=== PATIENT | female | born 1950 | race African-American/Black ===

== ENCOUNTER 2022-09-15 21:39 | Inpatient (IN) | payer MEDICARE, MEDICAID ==
[~2022-09-15] VITALS: Ht 167.6 cm; Wt 82.1 kg
[~2022-09-15 21:39] MED LIST: ATOR20TA PO; DILT300T10 PO; LEVO88TA7 PO; PANT40TA51 PO; RISP1 PO; TEMA30CA PO
[2022-09-16 00:48] LABS: BASOPHILS % 0.5 % (0.0-2.0); EOSINOPHILS % 1.2 % (0.0-5.0); HEMATOCRIT. 33.4 % (36.0-48.0); HEMOGLOBIN. 11.2 g/dL (12.0-16.0); LYMPHOCYTES % 9.8 % (20.0-50.0); MEAN CORPUSCULAR HEMOGLOBIN 32.1 pg (28.0-32.0); MEAN CORPUSCULAR VOLUME 95.9 fL (81.0-99.0); MEAN PLATELET VOLUME 7.7 fl (7.4-10.4); MONOCYTES % 8.2 % (2.0-8.0); NEUTROPHILS % 80.3 % (40.0-76.0); PLATELET 168 x1000/uL (130-400); RED BLOOD CELL COUNT 3.48 mill/uL (4.2-5.4); RED CELL DISTRIBUTION WIDTH 17.9 % (11.6-14.6)
[2022-09-16 00:53] LABS: CHLORIDE 93 mEq/L (98-107)
[2022-09-16] MEDS ORDERED: GUAIFENESIN 200MG/10ML SUGAR FREE UDC PO PRN ×2 (06:15→06:45)
[2022-09-16] MEDS ORDERED: DOCUSATE SODIUM 100MG CAPSULE PO PRN (06:15)
[2022-09-16] MEDS ORDERED: ACETAMINOPHEN 325MG TABLET PO PRN (06:15)
[2022-09-16] MEDS ORDERED: MAGNESIUM/ALUMINUM HYDROXIDE/SIMETHICONE 30ML UDC PO PRN (06:15)
[2022-09-16] MEDS ORDERED: CLONIDINE 0.1MG TABLET PO PRN (06:15)
[2022-09-16] MEDS ORDERED: IPRATROPIUM/ALBUTEROL 0.5-3(2.5)MG/3ML NEB HHN PRN (06:15)
[2022-09-16] MEDS ORDERED: KETOROLAC 30MG/ML VIAL IV PRN (06:15)
[2022-09-16] MEDS ORDERED: GABAPENTIN 300MG CAPSULE PO PRN (06:30)
[2022-09-16] MEDS ORDERED: NITROGLYCERIN 0.4MG TABLET SL SL PRN (06:45)
[2022-09-16] MEDS ORDERED: IPRATROPIUM/ALBUTEROL 0.5-3(2.5)MG/3ML NEB NEB PRN (06:45)
[2022-09-16] MEDS ORDERED: TRAMADOL 50MG TABLET PO PRN (06:45)
[2022-09-16] MEDS ORDERED: DILTIAZEM HCL 300MG CAPSULE SR 24HR PO SCH (06:45)
[2022-09-16] MEDS ORDERED: IPRATROPIUM BROMIDE (0.02%) 0.5MG/2.5ML NEB HHN PRN (07:30)
[2022-09-16] MEDS ORDERED: ALBUTEROL (0.083%) 2.5MG/3ML NEB HHN PRN (07:30)
[2022-09-16] MEDS ORDERED: NALOXONE HCL 0.4MG/ML VIAL IV PRN (07:45)
[2022-09-16] MEDS ORDERED: LEVOTHYROXINE SODIUM 88MCG TABLET PO SCH (07:50)
[2022-09-16] MEDS: LEVOTHYROXINE SODIUM 88MCG TABLET PO SCH (07:50)
[2022-09-16] MEDS: VALACYCLOVIR HCL 500MG TABLET PO SCH (08:00)
[2022-09-16 08:06] LABS: FOLIC ACID (FOLATE) SERUM 7.7 ng/mL (>5.38)
[2022-09-16] MEDS: FAMOTIDINE 20MG TABLET PO SCH (09:00)
[2022-09-16] MEDS: ASPIRIN 81MG EC TABLET PO SCH (09:00)
[2022-09-16] MEDS: ENOXAPARIN 30MG/0.3ML SYR SUBCUT SCH (09:00)
[2022-09-16 14:53] LABS: HEPATITIS B SURFACE ANTIGEN NEGATIVE
[2022-09-16] MEDS: RISPERIDONE 1MG TABLET PO SCH (17:00)
[2022-09-16 20:30] VITALS: BP 107/59
[2022-09-16] MEDS ORDERED: ATORVASTATIN CALCIUM 20MG TABLET PO SCH (21:00)
[2022-09-16] MEDS: ATORVASTATIN CALCIUM 10MG TABLET PO SCH (21:14)
[2022-09-16] MEDS: ZOLPIDEM TARTRATE 5MG TABLET PO PRN (21:29)
[2022-09-17] VITALS: BP 130/58
[2022-09-17 00:26] LABS: CREATINE KINASE MB FRACTION 4.3 ng/mL (0.5-3.6)
[2022-09-17 04:00] VITALS: BP 132/51
[2022-09-17] MEDS: LEVOTHYROXINE SODIUM 88MCG TABLET PO SCH (06:32)
[2022-09-17] MEDS: VALACYCLOVIR HCL 500MG TABLET PO SCH (08:00)
[2022-09-17 08:03] LABS: BASOPHILS % 0.9 % (0.0-2.0); EOSINOPHILS % 2.8 % (0.0-5.0); HEMATOCRIT. 30.8 % (36.0-48.0); HEMOGLOBIN. 10.3 g/dL (12.0-16.0); MEAN CORPUSCULAR HEMOGLOBIN 32.5 pg (28.0-32.0); MEAN CORPUSCULAR VOLUME 96.9 fL (81.0-99.0); MEAN PLATELET VOLUME 8.1 fl (7.4-10.4); MONOCYTES % 11.1 % (2.0-8.0); NEUTROPHILS % 66.2 % (40.0-76.0); PLATELET 169 x1000/uL (130-400); RED BLOOD CELL COUNT 3.17 mill/uL (4.2-5.4); RED CELL DISTRIBUTION WIDTH 17.8 % (11.6-14.6)
[2022-09-17 08:23] VITALS: BP 117/55
[2022-09-17 08:26] LABS: CHLORIDE 95 mEq/L (98-107)
[2022-09-17 08:42] LABS: PHOSPHORUS 4.1 mg/dL (2.5-4.9); T4 FREE 1.63 ng/dL (0.76-1.46)
[2022-09-17] MEDS: ENOXAPARIN 30MG/0.3ML SYR SUBCUT SCH (09:00)
[2022-09-17] MEDS: ASPIRIN 81MG EC TABLET PO SCH (09:00)
[2022-09-17 11:51] VITALS: BP 157/70
[2022-09-17] MEDS: FAMOTIDINE 20MG TABLET PO SCH (12:43)
[2022-09-17 15:51] VITALS: BP 153/70
[2022-09-17] MEDS: RISPERIDONE 1MG TABLET PO SCH (16:24)
[2022-09-17 20:00] VITALS: BP 166/71
[2022-09-17] MEDS: CLONIDINE 0.1MG TABLET PO PRN (20:58)
[2022-09-17] MEDS: ATORVASTATIN CALCIUM 10MG TABLET PO SCH (20:58)
[2022-09-17] MEDS ORDERED: AMI2 PO (21:02)
[2022-09-18] VITALS (13 sets, daily range): BP systolic 91–184; BP diastolic 56–82
[2022-09-18] MEDS: LEVOTHYROXINE SODIUM 88MCG TABLET PO SCH (06:29)
[2022-09-18 07:15] LABS: BASOPHILS % 0.4 % (0.0-2.0); EOSINOPHILS % 2.7 % (0.0-5.0); HEMATOCRIT. 29.5 % (36.0-48.0); HEMOGLOBIN. 9.9 g/dL (12.0-16.0); LYMPHOCYTES % 15.7 % (20.0-50.0); MEAN CORPUSCULAR VOLUME 95.5 fL (81.0-99.0); MEAN PLATELET VOLUME 7.9 fl (7.4-10.4); MONOCYTES % 11.8 % (2.0-8.0); NEUTROPHILS % 69.4 % (40.0-76.0); PLATELET 156 x1000/uL (130-400); RED BLOOD CELL COUNT 3.09 mill/uL (4.2-5.4); RED CELL DISTRIBUTION WIDTH 17.8 % (11.6-14.6)
[2022-09-18] MEDS: ASPIRIN 81MG EC TABLET PO SCH (08:51)
[2022-09-18] MEDS: FAMOTIDINE 20MG TABLET PO SCH (08:51)
[2022-09-18] MEDS: ENOXAPARIN 30MG/0.3ML SYR SUBCUT SCH (08:52)
[2022-09-18] MEDS: DOCUSATE SODIUM 100MG CAPSULE PO PRN (12:40)
[2022-09-18] MEDS: RISPERIDONE 1MG TABLET PO SCH (17:01)
[2022-09-18] MEDS: ATORVASTATIN CALCIUM 10MG TABLET PO SCH (21:00)
[2022-09-18] MEDS: ZOLPIDEM TARTRATE 5MG TABLET PO PRN (21:43)
[2022-09-18] MEDS: VALACYCLOVIR HCL 500MG TABLET PO SCH (21:43)
[2022-09-19] VITALS: BP 122/50
[2022-09-19 04:00] VITALS: BP 133/70
[2022-09-19] MEDS: LEVOTHYROXINE SODIUM 88MCG TABLET PO SCH (06:32)
[2022-09-19 08:00] VITALS: BP 143/66
[2022-09-19 08:16] LABS: BASOPHILS % 0.3 % (0.0-2.0); EOSINOPHILS % 2.3 % (0.0-5.0); HEMATOCRIT. 29.9 % (36.0-48.0); HEMOGLOBIN. 10.3 g/dL (12.0-16.0); LYMPHOCYTES % 12.5 % (20.0-50.0); MEAN CORPUSCULAR HEMOGLOBIN 32.5 pg (28.0-32.0); MEAN CORPUSCULAR VOLUME 94.6 fL (81.0-99.0); MONOCYTES % 12.4 % (2.0-8.0); NEUTROPHILS % 72.5 % (40.0-76.0); PLATELET 169 x1000/uL (130-400); RED BLOOD CELL COUNT 3.16 mill/uL (4.2-5.4); RED CELL DISTRIBUTION WIDTH 17.6 % (11.6-14.6)
[2022-09-19] MEDS: ASPIRIN 81MG EC TABLET PO SCH (09:53)
[2022-09-19] MEDS: FAMOTIDINE 20MG TABLET PO SCH (09:53)
[2022-09-19] MEDS: ENOXAPARIN 30MG/0.3ML SYR SUBCUT SCH (09:54)
[2022-09-19 12:00] VITALS: BP 156/61
[2022-09-19 16:00] VITALS: BP 144/72
[2022-09-19] MEDS: RISPERIDONE 1MG TABLET PO SCH (17:29)
[2022-09-19 20:00] VITALS: BP 157/58
[2022-09-19] MEDS: VALACYCLOVIR HCL 500MG TABLET PO SCH (21:50)
[2022-09-19] MEDS: ATORVASTATIN CALCIUM 10MG TABLET PO SCH (21:50)
[2022-09-20] VITALS (14 sets, daily range): BP systolic 94–170; BP diastolic 50–105
[2022-09-20] MEDS: CLONIDINE 0.1MG TABLET PO PRN (00:54)
[2022-09-20] MEDS: LEVOTHYROXINE SODIUM 88MCG TABLET PO SCH (05:54)
[2022-09-20] MEDS: FAMOTIDINE 20MG TABLET PO SCH (09:43)
[2022-09-20] MEDS: ENOXAPARIN 30MG/0.3ML SYR SUBCUT SCH (09:44)
[2022-09-20] MEDS: ASPIRIN 81MG EC TABLET PO SCH (09:44)
[2022-09-20 15:37] LABS: HEMATOCRIT. 28.7 % (36.0-48.0); HEMOGLOBIN. 9.8 g/dL (12.0-16.0); MEAN CORPUSCULAR HEMOGLOBIN 32.2 pg (28.0-32.0); MEAN CORPUSCULAR VOLUME 94.9 fL (81.0-99.0); MEAN PLATELET VOLUME 7.5 fl (7.4-10.4); PLATELET 170 x1000/uL (130-400); RED BLOOD CELL COUNT 3.03 mill/uL (4.2-5.4); RED CELL DISTRIBUTION WIDTH 17.7 % (11.6-14.6)
[2022-09-20] MEDS: RISPERIDONE 1MG TABLET PO SCH (17:28)
[2022-09-20] MEDS: VALACYCLOVIR HCL 500MG TABLET PO SCH (17:28)
[2022-09-20] MEDS: ACETAMINOPHEN 325MG TABLET PO PRN (17:30)
[2022-09-20] MEDS: ATORVASTATIN CALCIUM 20MG TABLET PO SCH (21:00)
[2022-09-20 21:32] LABS: PLATELET ESTIMATE NORMAL
[2022-09-21] VITALS: BP 152/72
[2022-09-21 04:00] VITALS: BP 164/69
[2022-09-21] MEDS: LEVOTHYROXINE SODIUM 88MCG TABLET PO SCH (06:48)
[2022-09-21 07:54] LABS: BASOPHILS % 0.4 % (0.0-2.0); EOSINOPHILS % 2.8 % (0.0-5.0); HEMATOCRIT. 29.3 % (36.0-48.0); LYMPHOCYTES % 17.2 % (20.0-50.0); MEAN CORPUSCULAR VOLUME 97.1 fL (81.0-99.0); MEAN PLATELET VOLUME 8.1 fl (7.4-10.4); MONOCYTES % 13.7 % (2.0-8.0); NEUTROPHILS % 65.9 % (40.0-76.0); PLATELET 173 x1000/uL (130-400); RED BLOOD CELL COUNT 3.02 mill/uL (4.2-5.4); RED CELL DISTRIBUTION WIDTH 17.6 % (11.6-14.6)
[2022-09-21 08:00] VITALS: BP 140/69
[2022-09-21] MEDS: VALACYCLOVIR HCL 500MG TABLET PO SCH (08:00)
[2022-09-21] MEDS: ASPIRIN 81MG EC TABLET PO SCH (09:37)
[2022-09-21] MEDS: FAMOTIDINE 20MG TABLET PO SCH (09:37)
[2022-09-21] MEDS: ENOXAPARIN 30MG/0.3ML SYR SUBCUT SCH (09:37)
[2022-09-21] MEDS: ACETAMINOPHEN 325MG TABLET PO PRN ×2 (13:58→21:33)
[2022-09-21 16:00] VITALS: BP 169/76
[2022-09-21] MEDS: RISPERIDONE 1MG TABLET PO SCH (17:48)
[2022-09-21] MEDS: CLONIDINE 0.1MG TABLET PO PRN ×2 (17:49→21:51)
[2022-09-21 20:00] VITALS: BP 185/76
[2022-09-21] MEDS: ATORVASTATIN CALCIUM 20MG TABLET PO SCH (21:26)
[2022-09-21] MEDS ORDERED: TEMAZEPAM 15MG CAPSULE PO PRN (21:45)
[2022-09-21] MEDS ORDERED: AMIODARONE HCL 200 MG TABLET PO NR (21:45)
[2022-09-21 23:25] VITALS: BP 167/80
[2022-09-21] MEDS: DILTIAZEM HCL 300MG CAPSULE SR 24HR PO SCH (23:25)
[2022-09-22] VITALS (11 sets, daily range): BP systolic 110–174; BP diastolic 55–96
[2022-09-22 07:20] LABS: HEMATOCRIT. 29.1 % (36.0-48.0); HEMOGLOBIN. 9.7 g/dL (12.0-16.0); MEAN CORPUSCULAR HEMOGLOBIN 32.2 pg (28.0-32.0); MEAN CORPUSCULAR VOLUME 96.3 fL (81.0-99.0); PLATELET 159 x1000/uL (130-400); RED BLOOD CELL COUNT 3.02 mill/uL (4.2-5.4)
[2022-09-22] MEDS: LEVOTHYROXINE SODIUM 88MCG TABLET PO SCH (07:39)
[2022-09-22] MEDS: DILTIAZEM HCL 300MG CAPSULE SR 24HR PO SCH (10:09)
[2022-09-22] MEDS: FAMOTIDINE 20MG TABLET PO SCH (10:09)
[2022-09-22] MEDS: ENOXAPARIN 30MG/0.3ML SYR SUBCUT SCH (10:09)
[2022-09-22] MEDS: ASPIRIN 81MG EC TABLET PO SCH (10:09)
[2022-09-22 13:23] LABS: PLATELET ESTIMATE NORMAL
[2022-09-22] MEDS: CLONIDINE 0.1MG TABLET PO PRN (14:19)
[2022-09-22] MEDS: RISPERIDONE 1MG TABLET PO SCH (17:12)
[2022-09-22] MEDS: VALACYCLOVIR HCL 500MG TABLET PO SCH (17:12)
[2022-09-22] MEDS: ATORVASTATIN CALCIUM 20MG TABLET PO SCH (21:44)
[2022-09-23] VITALS: BP 115/60
[2022-09-23 04:00] VITALS: BP 150/54
[2022-09-23 06:52] LABS: BASOPHILS % 0.5 % (0.0-2.0); EOSINOPHILS % 3.2 % (0.0-5.0); HEMATOCRIT. 27.6 % (36.0-48.0); HEMOGLOBIN. 9.4 g/dL (12.0-16.0); LYMPHOCYTES % 15.7 % (20.0-50.0); MEAN CORPUSCULAR HEMOGLOBIN 32.4 pg (28.0-32.0); MEAN CORPUSCULAR VOLUME 94.6 fL (81.0-99.0); MEAN PLATELET VOLUME 7.9 fl (7.4-10.4); NEUTROPHILS % 68.6 % (40.0-76.0); PLATELET 169 x1000/uL (130-400); RED BLOOD CELL COUNT 2.92 mill/uL (4.2-5.4); RED CELL DISTRIBUTION WIDTH 17.4 % (11.6-14.6)
[2022-09-23 07:09] LABS: PHOSPHORUS 4.1 mg/dL (2.5-4.9)
[2022-09-23 08:00] VITALS: BP 137/61
[2022-09-23] MEDS: ASPIRIN 81MG EC TABLET PO SCH (08:54)
[2022-09-23] MEDS: FAMOTIDINE 20MG TABLET PO SCH (08:54)
[2022-09-23] MEDS: LEVOTHYROXINE SODIUM 88MCG TABLET PO SCH (08:55)
[2022-09-23] MEDS: DILTIAZEM HCL 300MG CAPSULE SR 24HR PO SCH (09:00)
[2022-09-23] MEDS: ENOXAPARIN 30MG/0.3ML SYR SUBCUT SCH (09:07)
[2022-09-23 12:00] VITALS: BP 134/41
[2022-09-23 16:00] VITALS: BP 121/85
[2022-09-23] MEDS: RISPERIDONE 1MG TABLET PO SCH (17:23)
[2022-09-23] MEDS: VALACYCLOVIR HCL 500MG TABLET PO SCH (17:23)
[2022-09-23 20:00] VITALS: BP 136/86
[2022-09-23] MEDS: ATORVASTATIN CALCIUM 20MG TABLET PO SCH (21:00)
[2022-09-24] VITALS (17 sets, daily range): BP systolic 101–159; BP diastolic 47–70
[2022-09-24] MEDS: LEVOTHYROXINE SODIUM 88MCG TABLET PO SCH (06:57)
[2022-09-24] MEDS: ASPIRIN 81MG EC TABLET PO SCH (09:18)
[2022-09-24] MEDS: ENOXAPARIN 30MG/0.3ML SYR SUBCUT SCH (09:18)
[2022-09-24] MEDS: FAMOTIDINE 20MG TABLET PO SCH (09:18)
[2022-09-24] MEDS: VALACYCLOVIR HCL 500MG TABLET PO SCH (15:34)
[2022-09-24] MEDS: DILTIAZEM HCL 300MG CAPSULE SR 24HR PO SCH (15:34)
[2022-09-24] MEDS: RISPERIDONE 1MG TABLET PO SCH (17:56)
[2022-09-24] MEDS ORDERED: EPOETIN ALFA-EPBX 4,000 UNIT/ML VIAL SUBCUT SCH (21:00)
[2022-09-24] MEDS: ATORVASTATIN CALCIUM 20MG TABLET PO SCH ×2 (21:00→21:30)
[2022-09-25] VITALS: BP 113/58
[2022-09-25 04:00] VITALS: BP 140/54
[2022-09-25] MEDS: LEVOTHYROXINE SODIUM 88MCG TABLET PO SCH (06:29)
[2022-09-25 06:56] LABS: BASOPHILS % 0.5 % (0.0-2.0); EOSINOPHILS % 2.6 % (0.0-5.0); HEMATOCRIT. 24.8 % (36.0-48.0); HEMOGLOBIN. 8.4 g/dL (12.0-16.0); LYMPHOCYTES % 23.2 % (20.0-50.0); MEAN CORPUSCULAR HEMOGLOBIN 32.5 pg (28.0-32.0); MEAN CORPUSCULAR VOLUME 95.3 fL (81.0-99.0); MEAN PLATELET VOLUME 7.9 fl (7.4-10.4); MONOCYTES % 11.9 % (2.0-8.0); NEUTROPHILS % 61.8 % (40.0-76.0); PLATELET 165 x1000/uL (130-400); RED CELL DISTRIBUTION WIDTH 17.6 % (11.6-14.6)
[2022-09-25 08:00] VITALS: BP_SYST 136; BP_SYST 139; BP_DIAS 49
[2022-09-25] MEDS: ENOXAPARIN 30MG/0.3ML SYR SUBCUT SCH (09:16)
[2022-09-25] MEDS: DILTIAZEM HCL 300MG CAPSULE SR 24HR PO SCH (09:16)
[2022-09-25] MEDS: FAMOTIDINE 20MG TABLET PO SCH (09:17)
[2022-09-25] MEDS: ASPIRIN 81MG EC TABLET PO SCH (09:17)
[2022-09-25] MEDS: VALACYCLOVIR HCL 500MG TABLET PO SCH (09:17)
[2022-09-25 12:00] VITALS: BP 138/50
[2022-09-25] MEDS: RISPERIDONE 1MG TABLET PO SCH (17:24)
[2022-09-25 22:41] VITALS: BP 148/56
[2022-09-25] MEDS: ATORVASTATIN CALCIUM 20MG TABLET PO SCH (23:50)
[2022-09-26] VITALS (10 sets, daily range): BP systolic 101–145; BP diastolic 34–64
[2022-09-26 06:35] LABS: BASOPHILS % 0.5 % (0.0-2.0); EOSINOPHILS % 3.7 % (0.0-5.0); HEMATOCRIT. 23.5 % (36.0-48.0); HEMOGLOBIN. 7.9 g/dL (12.0-16.0); LYMPHOCYTES % 22.6 % (20.0-50.0); MEAN CORPUSCULAR HEMOGLOBIN 32.2 pg (28.0-32.0); MEAN CORPUSCULAR VOLUME 95.1 fL (81.0-99.0); MONOCYTES % 10.9 % (2.0-8.0); NEUTROPHILS % 62.3 % (40.0-76.0); PLATELET 159 x1000/uL (130-400); RED BLOOD CELL COUNT 2.47 mill/uL (4.2-5.4); RED CELL DISTRIBUTION WIDTH 17.3 % (11.6-14.6)
[2022-09-26] MEDS: LEVOTHYROXINE SODIUM 88MCG TABLET PO SCH (07:01)
[2022-09-26] MEDS: VALACYCLOVIR HCL 500MG TABLET PO SCH (08:00)
[2022-09-26] MEDS: ENOXAPARIN 30MG/0.3ML SYR SUBCUT SCH (09:00)
[2022-09-26] MEDS: ASPIRIN 81MG EC TABLET PO SCH (09:00)
[2022-09-26] MEDS: FAMOTIDINE 20MG TABLET PO SCH (09:00)
[2022-09-26] MEDS: DILTIAZEM HCL 300MG CAPSULE SR 24HR PO SCH (09:00)
[2022-09-26] MEDS: RISPERIDONE 1MG TABLET PO SCH (17:03)
[2022-09-26] MEDS: ATORVASTATIN CALCIUM 20MG TABLET PO SCH (21:00)
[2022-09-27 04:23] VITALS: BP 122/39
[2022-09-27] MEDS: LEVOTHYROXINE SODIUM 88MCG TABLET PO SCH (06:57)
[2022-09-27 08:00] VITALS: BP 169/97
[2022-09-27] MEDS: VALACYCLOVIR HCL 500MG TABLET PO SCH (09:51)
[2022-09-27] MEDS: DILTIAZEM HCL 300MG CAPSULE SR 24HR PO SCH (09:52)
[2022-09-27] MEDS: FAMOTIDINE 20MG TABLET PO SCH (09:52)
[2022-09-27] MEDS: ASPIRIN 81MG EC TABLET PO SCH (09:52)
[2022-09-27] MEDS: DOCUSATE SODIUM 100MG CAPSULE PO PRN (09:53)
[2022-09-27] MEDS: ENOXAPARIN 30MG/0.3ML SYR SUBCUT SCH (09:53)
[2022-09-27] MEDS: MAGNESIUM/ALUMINUM HYDROXIDE/SIMETHICONE 30ML UDC PO PRN (09:53)
[2022-09-27 12:00] VITALS: BP 145/60
[2022-09-27 16:00] VITALS: BP 132/49
[2022-09-27] MEDS: RISPERIDONE 1MG TABLET PO SCH (18:23)
[2022-09-27 20:00] VITALS: BP 158/66
[2022-09-27] MEDS ORDERED: EPOETIN ALFA-EPBX 4,000 UNIT/ML VIAL SUBCUT SCH (21:00)
[2022-09-27] MEDS: ATORVASTATIN CALCIUM 20MG TABLET PO SCH (21:00)
[2022-09-28] VITALS (14 sets, daily range): BP systolic 92–162; BP diastolic 42–66
[2022-09-28] MEDS: LEVOTHYROXINE SODIUM 88MCG TABLET PO SCH (06:31)
[2022-09-28 06:52] LABS: BASOPHILS % 0.5 % (0.0-2.0); EOSINOPHILS % 2.9 % (0.0-5.0); HEMATOCRIT. 21.6 % (36.0-48.0); HEMOGLOBIN. 7.3 g/dL (12.0-16.0); LYMPHOCYTES % 21.5 % (20.0-50.0); MEAN CORPUSCULAR HEMOGLOBIN 32.7 pg (28.0-32.0); MEAN CORPUSCULAR VOLUME 97.2 fL (81.0-99.0); NEUTROPHILS % 65.1 % (40.0-76.0); RED BLOOD CELL COUNT 2.22 mill/uL (4.2-5.4); RED CELL DISTRIBUTION WIDTH 17.5 % (11.6-14.6)
[2022-09-28] MEDS: VALACYCLOVIR HCL 500MG TABLET PO SCH (08:00)
[2022-09-28] MEDS: DILTIAZEM HCL 300MG CAPSULE SR 24HR PO SCH (09:00)
[2022-09-28] MEDS: ASPIRIN 81MG EC TABLET PO SCH (09:58)
[2022-09-28] MEDS: FAMOTIDINE 20MG TABLET PO SCH (09:59)
[2022-09-28] MEDS: ENOXAPARIN 30MG/0.3ML SYR SUBCUT SCH (09:59)
[2022-09-28] MEDS: ACETAMINOPHEN 325MG TABLET PO PRN (10:00)
[2022-09-28] MEDS: MAGNESIUM/ALUMINUM HYDROXIDE/SIMETHICONE 30ML UDC PO PRN (10:03)
[2022-09-28 13:32] LABS: PLATELET 147 x1000/uL (130-400)
[2022-09-28] MEDS: RISPERIDONE 1MG TABLET PO SCH (18:42)
[2022-09-28] MEDS: DOCUSATE SODIUM 100MG CAPSULE PO PRN (18:42)
[2022-09-28] MEDS: ATORVASTATIN CALCIUM 20MG TABLET PO SCH (21:26)
[2022-09-28] MEDS: EPOETIN ALFA-EPBX 4,000 UNIT/ML VIAL SUBCUT SCH (21:27)
[2022-09-29] VITALS: BP 154/47
[2022-09-29] MEDS: LEVOTHYROXINE SODIUM 88MCG TABLET PO SCH (06:02)
[2022-09-29 06:41] LABS: BASOPHILS % 0.7 % (0.0-2.0); EOSINOPHILS % 2.5 % (0.0-5.0); HEMOGLOBIN. 7.6 g/dL (12.0-16.0); LYMPHOCYTES % 20.8 % (20.0-50.0); MEAN CORPUSCULAR VOLUME 96.6 fL (81.0-99.0); MEAN PLATELET VOLUME 8.2 fl (7.4-10.4); MONOCYTES % 9.7 % (2.0-8.0); NEUTROPHILS % 66.3 % (40.0-76.0); PLATELET 158 x1000/uL (130-400); RED BLOOD CELL COUNT 2.39 mill/uL (4.2-5.4); RED CELL DISTRIBUTION WIDTH 17.9 % (11.6-14.6)
[2022-09-29 08:00] VITALS: BP 151/51
[2022-09-29] MEDS: VALACYCLOVIR HCL 500MG TABLET PO SCH (08:00)
[2022-09-29] MEDS: DILTIAZEM HCL 300MG CAPSULE SR 24HR PO SCH (10:07)
[2022-09-29] MEDS: FAMOTIDINE 20MG TABLET PO SCH (10:07)
[2022-09-29] MEDS: ASPIRIN 81MG EC TABLET PO SCH (10:07)
[2022-09-29] MEDS: ENOXAPARIN 30MG/0.3ML SYR SUBCUT SCH (10:08)
[2022-09-29] MEDS: ACETAMINOPHEN 325MG TABLET PO PRN ×2 (11:18→18:55)
[2022-09-29 12:00] VITALS: BP 133/54
[2022-09-29 16:00] VITALS: BP 128/77
[2022-09-29] MEDS: RISPERIDONE 1MG TABLET PO SCH (17:27)
[2022-09-29] MEDS: ATORVASTATIN CALCIUM 20MG TABLET PO SCH (20:29)
[2022-09-30] VITALS (11 sets, daily range): BP systolic 99–157; BP diastolic 51–72
[2022-09-30 06:37] LABS: BASOPHILS % 0.6 % (0.0-2.0); EOSINOPHILS % 3.3 % (0.0-5.0); HEMATOCRIT. 24.2 % (36.0-48.0); HEMOGLOBIN. 8.2 g/dL (12.0-16.0); LYMPHOCYTES % 24.8 % (20.0-50.0); MEAN CORPUSCULAR HEMOGLOBIN 32.8 pg (28.0-32.0); MEAN CORPUSCULAR VOLUME 96.5 fL (81.0-99.0); MEAN PLATELET VOLUME 8.1 fl (7.4-10.4); NEUTROPHILS % 62.3 % (40.0-76.0); PLATELET 163 x1000/uL (130-400); RED BLOOD CELL COUNT 2.51 mill/uL (4.2-5.4); RED CELL DISTRIBUTION WIDTH 17.4 % (11.6-14.6)
[2022-09-30] MEDS: LEVOTHYROXINE SODIUM 88MCG TABLET PO SCH (06:39)
[2022-09-30] MEDS: ASPIRIN 81MG EC TABLET PO SCH (08:55)
[2022-09-30] MEDS: ENOXAPARIN 30MG/0.3ML SYR SUBCUT SCH (08:55)
[2022-09-30] MEDS: DOCUSATE SODIUM 100MG CAPSULE PO PRN (08:55)
[2022-09-30] MEDS: FAMOTIDINE 20MG TABLET PO SCH (08:55)
[2022-09-30] MEDS: DILTIAZEM HCL 300MG CAPSULE SR 24HR PO SCH (08:56)
[2022-09-30] MEDS: RISPERIDONE 1MG TABLET PO SCH (17:38)
[2022-09-30] MEDS: VALACYCLOVIR HCL 500MG TABLET PO SCH (17:39)
[2022-09-30] MEDS: EPOETIN ALFA-EPBX 4,000 UNIT/ML VIAL SUBCUT SCH ×2 (22:12→22:17)
[2022-09-30] MEDS: ATORVASTATIN CALCIUM 20MG TABLET PO SCH (22:12)
[2022-10-01] MEDS: LEVOTHYROXINE SODIUM 88MCG TABLET PO SCH (06:13)
[2022-10-01 08:00] VITALS: BP 144/54
[2022-10-01] MEDS: VALACYCLOVIR HCL 500MG TABLET PO SCH (08:07)
[2022-10-01] MEDS: ENOXAPARIN 30MG/0.3ML SYR SUBCUT SCH (08:33)
[2022-10-01] MEDS: DILTIAZEM HCL 300MG CAPSULE SR 24HR PO SCH (08:34)
[2022-10-01] MEDS: FAMOTIDINE 20MG TABLET PO SCH (08:34)
[2022-10-01] MEDS: ASPIRIN 81MG EC TABLET PO SCH (08:34)
[2022-10-01 12:00] VITALS: BP 148/48
[2022-10-01 16:00] VITALS: BP 158/53
[2022-10-01] MEDS: RISPERIDONE 1MG TABLET PO SCH (18:03)
[2022-10-01 20:00] VITALS: BP 165/68
[2022-10-01] MEDS: CLONIDINE 0.1MG TABLET PO PRN (20:49)
[2022-10-01] MEDS: ATORVASTATIN CALCIUM 20MG TABLET PO SCH (21:00)
[2022-10-02] VITALS: BP 135/50
[2022-10-02 04:00] VITALS: BP 146/66
[2022-10-02] MEDS: LEVOTHYROXINE SODIUM 88MCG TABLET PO SCH (06:03)
[2022-10-02] MEDS: ACETAMINOPHEN 325MG TABLET PO PRN (07:33)
[2022-10-02] MEDS: VALACYCLOVIR HCL 500MG TABLET PO SCH (07:34)
[2022-10-02] MEDS: FAMOTIDINE 20MG TABLET PO SCH (09:45)
[2022-10-02] MEDS: DILTIAZEM HCL 300MG CAPSULE SR 24HR PO SCH (09:45)
[2022-10-02] MEDS: ASPIRIN 81MG EC TABLET PO SCH (09:46)
[2022-10-02] MEDS: ENOXAPARIN 30MG/0.3ML SYR SUBCUT SCH (09:46)
[2022-10-02] MEDS: RISPERIDONE 1MG TABLET PO SCH (17:00)
[2022-10-02] MEDS: ATORVASTATIN CALCIUM 20MG TABLET PO SCH (21:00)
[2022-10-02 21:55] VITALS: BP 166/67
[2022-10-02] MEDS: MAGNESIUM/ALUMINUM HYDROXIDE/SIMETHICONE 30ML UDC PO PRN (23:15)
[2022-10-03] VITALS (15 sets, daily range): BP systolic 100–162; BP diastolic 40–68
[2022-10-03 06:05] LABS: BASOPHILS % 0.6 % (0.0-2.0); HEMATOCRIT. 22.8 % (36.0-48.0); HEMOGLOBIN. 7.8 g/dL (12.0-16.0); LYMPHOCYTES % 16.9 % (20.0-50.0); MEAN CORPUSCULAR VOLUME 96.7 fL (81.0-99.0); MEAN PLATELET VOLUME 8.2 fl (7.4-10.4); MONOCYTES % 9.7 % (2.0-8.0); NEUTROPHILS % 70.8 % (40.0-76.0); PLATELET 155 x1000/uL (130-400); RED BLOOD CELL COUNT 2.36 mill/uL (4.2-5.4); RED CELL DISTRIBUTION WIDTH 16.9 % (11.6-14.6)
[2022-10-03] MEDS: VALACYCLOVIR HCL 500MG TABLET PO SCH (09:14)
[2022-10-03] MEDS: FAMOTIDINE 20MG TABLET PO SCH (09:15)
[2022-10-03] MEDS: ASPIRIN 81MG EC TABLET PO SCH (09:15)
[2022-10-03] MEDS: ENOXAPARIN 30MG/0.3ML SYR SUBCUT SCH (09:16)
[2022-10-03] MEDS: DILTIAZEM HCL 300MG CAPSULE SR 24HR PO SCH (09:20)
[2022-10-03] MEDS: LEVOTHYROXINE SODIUM 88MCG TABLET PO SCH (10:18)
[2022-10-03] MEDS: ACETAMINOPHEN 325MG TABLET PO PRN (17:46)
[2022-10-03] MEDS: RISPERIDONE 1MG TABLET PO SCH (17:46)
[2022-10-03] MEDS: ATORVASTATIN CALCIUM 20MG TABLET PO SCH (21:38)
[2022-10-03] MEDS: EPOETIN ALFA-EPBX 4,000 UNIT/ML VIAL SUBCUT SCH (21:38)
[2022-10-04] VITALS: BP 159/61
[2022-10-04 04:00] VITALS: BP 131/57
[2022-10-04] MEDS: LEVOTHYROXINE SODIUM 88MCG TABLET PO SCH (05:49)
[2022-10-04 08:00] VITALS: BP 145/53
[2022-10-04] MEDS: ASPIRIN 81MG EC TABLET PO SCH (11:01)
[2022-10-04] MEDS: DILTIAZEM HCL 300MG CAPSULE SR 24HR PO SCH (11:01)
[2022-10-04] MEDS: FAMOTIDINE 20MG TABLET PO SCH (11:01)
[2022-10-04] MEDS: DOCUSATE SODIUM 100MG CAPSULE PO PRN ×2 (11:02→18:43)
[2022-10-04] MEDS: ENOXAPARIN 30MG/0.3ML SYR SUBCUT SCH (11:02)
[2022-10-04 12:00] VITALS: BP 120/52
[2022-10-04] MEDS: MAGNESIUM/ALUMINUM HYDROXIDE/SIMETHICONE 30ML UDC PO PRN (13:24)
[2022-10-04] MEDS: ACETAMINOPHEN 325MG TABLET PO PRN (13:25)
[2022-10-04 16:00] VITALS: BP 124/53
[2022-10-04] MEDS: RISPERIDONE 1MG TABLET PO SCH (18:43)
[2022-10-04 20:00] VITALS: BP 167/52
[2022-10-04] MEDS: ATORVASTATIN CALCIUM 20MG TABLET PO SCH (20:14)
[2022-10-04] MEDS: CLONIDINE 0.1MG TABLET PO PRN (21:19)
[2022-10-05] VITALS (15 sets, daily range): BP systolic 102–153; BP diastolic 41–64
[2022-10-05] MEDS: LEVOTHYROXINE SODIUM 88MCG TABLET PO SCH (05:55)
[2022-10-05] MEDS: FAMOTIDINE 20MG TABLET PO SCH (08:43)
[2022-10-05] MEDS: ASPIRIN 81MG EC TABLET PO SCH (08:43)
[2022-10-05] MEDS: DILTIAZEM HCL 300MG CAPSULE SR 24HR PO SCH (08:43)
[2022-10-05] MEDS: ENOXAPARIN 30MG/0.3ML SYR SUBCUT SCH (08:43)
[2022-10-05 15:10] LABS: 25-HYDROXY VITAMIN D3 8.2 ng/mL (.)
[2022-10-05] MEDS: RISPERIDONE 1MG TABLET PO SCH (17:14)
[2022-10-05] MEDS: ATORVASTATIN CALCIUM 20MG TABLET PO SCH (20:31)
[2022-10-05 21:02] LABS: BASOPHILS % 0.6 % (0.0-2.0); EOSINOPHILS % 3.4 % (0.0-5.0); HEMATOCRIT. 22.8 % (36.0-48.0); HEMOGLOBIN. 7.5 g/dL (12.0-16.0); LYMPHOCYTES % 24.5 % (20.0-50.0); MEAN CORPUSCULAR HEMOGLOBIN 32.8 pg (28.0-32.0); MEAN CORPUSCULAR VOLUME 99.9 fL (81.0-99.0); MEAN PLATELET VOLUME 7.8 fl (7.4-10.4); MONOCYTES % 12.6 % (2.0-8.0); NEUTROPHILS % 58.9 % (40.0-76.0); PLATELET 155 x1000/uL (130-400); RED BLOOD CELL COUNT 2.28 mill/uL (4.2-5.4); RED CELL DISTRIBUTION WIDTH 18.5 % (11.6-14.6)
[2022-10-06 08:03] VITALS: BP 128/41
[2022-10-06] MEDS: ASPIRIN 81MG EC TABLET PO SCH (08:25)
[2022-10-06] MEDS: FAMOTIDINE 20MG TABLET PO SCH (08:25)
[2022-10-06] MEDS: LEVOTHYROXINE SODIUM 88MCG TABLET PO SCH (08:25)
[2022-10-06] MEDS: DILTIAZEM HCL 300MG CAPSULE SR 24HR PO SCH (08:25)
[2022-10-06] MEDS: ENOXAPARIN 30MG/0.3ML SYR SUBCUT SCH (08:26)
[2022-10-06 12:31] VITALS: BP 140/90
[2022-10-06] MEDS: LIDOCAINE 5% PATCH TOP SCH (14:42)
[2022-10-06 16:26] VITALS: BP 111/51
[2022-10-06] MEDS: RISPERIDONE 1MG TABLET PO SCH (17:35)
[2022-10-06 20:00] VITALS: BP 147/52
[2022-10-06] MEDS: ATORVASTATIN CALCIUM 20MG TABLET PO SCH ×2 (21:00→21:03)
[2022-10-07] VITALS (15 sets, daily range): BP systolic 102–148; BP diastolic 41–123
[2022-10-07] MEDS: LEVOTHYROXINE SODIUM 88MCG TABLET PO SCH (06:25)
[2022-10-07 06:41] LABS: BASOPHILS % 0.6 % (0.0-2.0); HEMATOCRIT. 23.4 % (36.0-48.0); HEMOGLOBIN. 7.8 g/dL (12.0-16.0); LYMPHOCYTES % 20.4 % (20.0-50.0); MEAN CORPUSCULAR HEMOGLOBIN 32.7 pg (28.0-32.0); MEAN CORPUSCULAR VOLUME 98.7 fL (81.0-99.0); MEAN PLATELET VOLUME 8.1 fl (7.4-10.4); MONOCYTES % 11.5 % (2.0-8.0); NEUTROPHILS % 63.5 % (40.0-76.0); PLATELET 171 x1000/uL (130-400); RED BLOOD CELL COUNT 2.37 mill/uL (4.2-5.4); RED CELL DISTRIBUTION WIDTH 19.3 % (11.6-14.6)
[2022-10-07] MEDS: LIDOCAINE 5% PATCH TOP SCH (09:00)
[2022-10-07] MEDS: ENOXAPARIN 30MG/0.3ML SYR SUBCUT SCH (09:17)
[2022-10-07] MEDS: DILTIAZEM HCL 300MG CAPSULE SR 24HR PO SCH (09:18)
[2022-10-07] MEDS: ASPIRIN 81MG EC TABLET PO SCH (09:18)
[2022-10-07] MEDS: FAMOTIDINE 20MG TABLET PO SCH (09:18)
[2022-10-07] MEDS: RISPERIDONE 1MG TABLET PO SCH (17:40)
[2022-10-07] MEDS: ATORVASTATIN CALCIUM 20MG TABLET PO SCH (21:00)
[2022-10-08] VITALS: BP 128/50
[2022-10-08] MEDS: LEVOTHYROXINE SODIUM 88MCG TABLET PO SCH (05:37)
[2022-10-08 08:00] VITALS: BP 147/50
[2022-10-08] MEDS: LIDOCAINE 5% PATCH TOP SCH (09:00)
[2022-10-08] MEDS: FAMOTIDINE 20MG TABLET PO SCH (09:43)
[2022-10-08] MEDS: ASPIRIN 81MG EC TABLET PO SCH (09:43)
[2022-10-08] MEDS: ENOXAPARIN 30MG/0.3ML SYR SUBCUT SCH (09:44)
[2022-10-08] MEDS: DILTIAZEM HCL 300MG CAPSULE SR 24HR PO SCH (09:44)
[2022-10-08] MEDS: ACETAMINOPHEN 325MG TABLET PO PRN (10:59)
[2022-10-08 12:00] VITALS: BP 147/50
[2022-10-08 16:00] VITALS: BP 150/58
[2022-10-08] MEDS: RISPERIDONE 1MG TABLET PO SCH (17:18)
[2022-10-08 20:00] VITALS: BP 150/49
[2022-10-08] MEDS: ATORVASTATIN CALCIUM 20MG TABLET PO SCH (20:36)
[2022-10-09] VITALS: BP 120/47
[2022-10-09] MEDS: LEVOTHYROXINE SODIUM 88MCG TABLET PO SCH (05:45)
[2022-10-09 06:34] LABS: BASOPHILS % 0.3 % (0.0-2.0); EOSINOPHILS % 4.8 % (0.0-5.0); HEMATOCRIT. 23.8 % (36.0-48.0); LYMPHOCYTES % 27.6 % (20.0-50.0); MEAN PLATELET VOLUME 8.2 fl (7.4-10.4); MONOCYTES % 12.2 % (2.0-8.0); NEUTROPHILS % 55.1 % (40.0-76.0); PLATELET 170 x1000/uL (130-400); RED BLOOD CELL COUNT 2.43 mill/uL (4.2-5.4); RED CELL DISTRIBUTION WIDTH 20.3 % (11.6-14.6)
[2022-10-09 07:30] VITALS: BP 119/65
[2022-10-09] MEDS: ENOXAPARIN 30MG/0.3ML SYR SUBCUT SCH (09:25)
[2022-10-09] MEDS: DILTIAZEM HCL 300MG CAPSULE SR 24HR PO SCH (09:25)
[2022-10-09] MEDS: ASPIRIN 81MG EC TABLET PO SCH (09:25)
[2022-10-09] MEDS: FAMOTIDINE 20MG TABLET PO SCH (09:25)
[2022-10-09] MEDS: LIDOCAINE 5% PATCH TOP SCH (09:34)
[2022-10-09 12:00] VITALS: BP 123/72
[2022-10-09 16:00] VITALS: BP 158/54
[2022-10-09] MEDS: RISPERIDONE 1MG TABLET PO SCH (17:00)
[2022-10-09 20:00] VITALS: BP 179/70
[2022-10-09] MEDS: ATORVASTATIN CALCIUM 20MG TABLET PO SCH (20:33)
[2022-10-09] MEDS: CLONIDINE 0.1MG TABLET PO PRN (20:38)
[2022-10-10] VITALS (12 sets, daily range): BP systolic 118–153; BP diastolic 43–73
[2022-10-10] MEDS: LEVOTHYROXINE SODIUM 88MCG TABLET PO SCH (06:01)
[2022-10-10] MEDS: DILTIAZEM HCL 300MG CAPSULE SR 24HR PO SCH (09:19)
[2022-10-10] MEDS: FAMOTIDINE 20MG TABLET PO SCH (09:19)
[2022-10-10] MEDS: MAGNESIUM/ALUMINUM HYDROXIDE/SIMETHICONE 30ML UDC PO PRN (09:21)
[2022-10-10] MEDS: DOCUSATE SODIUM 100MG CAPSULE PO PRN (09:21)
[2022-10-10] MEDS: LIDOCAINE 5% PATCH TOP SCH (09:21)
[2022-10-10] MEDS: ASPIRIN 81MG EC TABLET PO SCH (12:02)
[2022-10-10] MEDS: ENOXAPARIN 30MG/0.3ML SYR SUBCUT SCH (12:03)
[2022-10-10] MEDS: RISPERIDONE 1MG TABLET PO SCH (21:30)
[2022-10-11] VITALS: BP 149/55
[2022-10-11 06:14] LABS: BASOPHILS % 0.5 % (0.0-2.0); EOSINOPHILS % 4.3 % (0.0-5.0); HEMATOCRIT. 23.4 % (36.0-48.0); LYMPHOCYTES % 28.6 % (20.0-50.0); MEAN CORPUSCULAR HEMOGLOBIN 33.7 pg (28.0-32.0); MEAN CORPUSCULAR VOLUME 98.5 fL (81.0-99.0); MEAN PLATELET VOLUME 8.1 fl (7.4-10.4); MONOCYTES % 11.3 % (2.0-8.0); NEUTROPHILS % 55.3 % (40.0-76.0); PLATELET 157 x1000/uL (130-400); RED BLOOD CELL COUNT 2.37 mill/uL (4.2-5.4); RED CELL DISTRIBUTION WIDTH 19.5 % (11.6-14.6)
[2022-10-11] MEDS: LEVOTHYROXINE SODIUM 88MCG TABLET PO SCH (06:25)
[2022-10-11] MEDS: ACETAMINOPHEN 325MG TABLET PO PRN (06:25)
[2022-10-11] MEDS: ENOXAPARIN 30MG/0.3ML SYR SUBCUT SCH (09:00)
[2022-10-11] MEDS: FAMOTIDINE 20MG TABLET PO SCH (10:11)
[2022-10-11] MEDS: DILTIAZEM HCL 300MG CAPSULE SR 24HR PO SCH (10:11)
[2022-10-11] MEDS: ASPIRIN 81MG EC TABLET PO SCH (10:11)
[2022-10-11] MEDS: LIDOCAINE 5% PATCH TOP SCH (10:23)
[2022-10-11] MEDS: RISPERIDONE 1MG TABLET PO SCH (17:49)
[2022-10-11 20:00] VITALS: BP 160/55
[2022-10-11] MEDS: CLONIDINE 0.1MG TABLET PO PRN (20:55)
[2022-10-11] MEDS: ATORVASTATIN CALCIUM 20MG TABLET PO SCH ×2 (20:56→21:00)
[2022-10-12] VITALS (14 sets, daily range): BP systolic 97–149; BP diastolic 38–78
[2022-10-12] MEDS: LEVOTHYROXINE SODIUM 88MCG TABLET PO SCH (07:14)
[2022-10-12] MEDS: DILTIAZEM HCL 300MG CAPSULE SR 24HR PO SCH (09:35)
[2022-10-12] MEDS: ASPIRIN 81MG EC TABLET PO SCH (09:35)
[2022-10-12] MEDS: FAMOTIDINE 20MG TABLET PO SCH (09:36)
[2022-10-12] MEDS: ENOXAPARIN 30MG/0.3ML SYR SUBCUT SCH (09:36)
[2022-10-12] MEDS: LIDOCAINE 5% PATCH TOP SCH (09:37)
[2022-10-12] MEDS: RISPERIDONE 1MG TABLET PO SCH (18:47)
[2022-10-12] MEDS: ATORVASTATIN CALCIUM 20MG TABLET PO SCH (21:08)
[2022-10-13 04:00] VITALS: BP 136/54
[2022-10-13] MEDS: LEVOTHYROXINE SODIUM 88MCG TABLET PO SCH (06:34)
[2022-10-13 08:00] VITALS: BP 125/49
[2022-10-13] MEDS: LIDOCAINE 5% PATCH TOP SCH (09:48)
[2022-10-13] MEDS: ENOXAPARIN 30MG/0.3ML SYR SUBCUT SCH (09:48)
[2022-10-13] MEDS: DILTIAZEM HCL 300MG CAPSULE SR 24HR PO SCH (09:48)
[2022-10-13] MEDS: ASPIRIN 81MG EC TABLET PO SCH (09:48)
[2022-10-13] MEDS: FAMOTIDINE 20MG TABLET PO SCH (09:48)
[2022-10-13 15:21] VITALS: BP 129/55
[2022-10-13] MEDS: RISPERIDONE 1MG TABLET PO SCH (19:06)
[2022-10-13 20:00] VITALS: BP 145/33
[2022-10-13] MEDS: ATORVASTATIN CALCIUM 20MG TABLET PO SCH (22:26)
[2022-10-14] VITALS (18 sets, daily range): BP systolic 107–153; BP diastolic 32–80
[2022-10-14 06:15] LABS: MEAN CORPUSCULAR HEMOGLOBIN 32.8 pg (28.0-32.0); MEAN CORPUSCULAR VOLUME 98.7 fL (81.0-99.0); PLATELET 149 x1000/uL (130-400); RED BLOOD CELL COUNT 2.06 mill/uL (4.2-5.4); RED CELL DISTRIBUTION WIDTH 18.4 % (11.6-14.6)
[2022-10-14] MEDS: LEVOTHYROXINE SODIUM 88MCG TABLET PO SCH (06:36)
[2022-10-14 07:11] LABS: HEMOGLOBIN. 6.8 g/dL (12.0-16.0)
[2022-10-14 07:12] LABS: HEMATOCRIT. 20.3 % (36.0-48.0)
[2022-10-14] MEDS ORDERED: FILGRASTIM-TBO 300 MCG/0.5 ML SYRINGE SQ NR (09:00)
[2022-10-14] MEDS: FAMOTIDINE 20MG TABLET PO SCH (09:44)
[2022-10-14] MEDS: ASPIRIN 81MG EC TABLET PO SCH (09:44)
[2022-10-14] MEDS: DILTIAZEM HCL 300MG CAPSULE SR 24HR PO SCH (09:44)
[2022-10-14] MEDS: LIDOCAINE 5% PATCH TOP SCH (09:45)
[2022-10-14] MEDS: ENOXAPARIN 30MG/0.3ML SYR SUBCUT SCH (09:46)
[2022-10-14 13:19] LABS: PLATELET ESTIMATE NORMAL
[2022-10-14] MEDS: RISPERIDONE 1MG TABLET PO SCH (18:30)
[2022-10-14] MEDS ORDERED: EPOETIN ALFA-EPBX 4,000 UNIT/ML VIAL SUBCUT NR (21:00)
[2022-10-14] MEDS: ATORVASTATIN CALCIUM 20MG TABLET PO SCH (21:31)
[2022-10-14] MEDS: ACETAMINOPHEN 325MG TABLET PO PRN (21:34)
[2022-10-15] VITALS: BP 166/52
[2022-10-15 04:00] VITALS: BP 140/42
[2022-10-15 08:00] VITALS: BP 128/44
[2022-10-15 08:12] LABS: HEMATOCRIT. 26.7 % (36.0-48.0); MEAN CORPUSCULAR HEMOGLOBIN 32.3 pg (28.0-32.0); MEAN CORPUSCULAR VOLUME 95.7 fL (81.0-99.0); MEAN PLATELET VOLUME 8.2 fl (7.4-10.4); PLATELET 170 x1000/uL (130-400); RED BLOOD CELL COUNT 2.79 mill/uL (4.2-5.4); RED CELL DISTRIBUTION WIDTH 18.8 % (11.6-14.6)
[2022-10-15 08:28] LABS: PROTHROMBIN TIME 10.9 sec (9.6-11.0)
[2022-10-15] MEDS: LIDOCAINE 5% PATCH TOP SCH (09:00)
[2022-10-15] MEDS: DILTIAZEM HCL 300MG CAPSULE SR 24HR PO SCH (09:59)
[2022-10-15 12:00] VITALS: BP 125/45
[2022-10-15 13:31] LABS: PLATELET ESTIMATE NORMAL
[2022-10-15 16:00] VITALS: BP 126/56
[2022-10-16] MEDS: DILTIAZEM HCL 300MG CAPSULE SR 24HR PO SCH (09:00)
[2022-10-16] MEDS: LEVOTHYROXINE SODIUM 88MCG TABLET PO SCH (10:02)
[2022-10-16] MEDS: LIDOCAINE 5% PATCH TOP SCH (10:04)
[2022-10-16 11:06] VITALS: BP 137/50
[2022-10-16 12:35] VITALS: BP 141/44
[2022-10-16 16:28] VITALS: BP 136/48
[2022-10-16 20:00] VITALS: BP 193/69
[2022-10-16] MEDS: ACETAMINOPHEN 325MG TABLET PO PRN (21:14)
[2022-10-17] VITALS (11 sets, daily range): BP systolic 105–165; BP diastolic 50–69
[2022-10-17 05:54] LABS: HEMATOCRIT 26.7 % (36.0-48.0); HEMOGLOBIN 9.3 g/dL (12.0-16.0); MEAN CORPUSCULAR HEMOGLOBIN 32.7 pg (28.0-32.0); MEAN CORPUSCULAR VOLUME 94.3 fL (81.0-99.0); PLATELET 167 x1000/uL (130-400); RED BLOOD CELL COUNT 2.83 mill/uL (4.2-5.4); RED CELL DISTRIBUTION WIDTH 18.4 % (11.6-14.6)
[2022-10-17] MEDS: LEVOTHYROXINE SODIUM 88MCG TABLET PO SCH (06:51)
[2022-10-17] MEDS: DILTIAZEM HCL 300MG CAPSULE SR 24HR PO SCH (08:59)
[2022-10-17] MEDS: LIDOCAINE 5% PATCH TOP SCH (08:59)
[2022-10-17] MEDS: ACETAMINOPHEN 325MG TABLET PO PRN (08:59)
[2022-10-18] VITALS: BP_SYST 112; BP_DIAS 50; BP_DIAS 52
[2022-10-18 04:00] VITALS: BP 133/48
[2022-10-18] MEDS: LEVOTHYROXINE SODIUM 88MCG TABLET PO SCH (06:00)
[2022-10-18 06:58] LABS: BASOPHILS % 0.5 % (0.0-2.0); EOSINOPHILS % 2.6 % (0.0-5.0); HEMATOCRIT. 24.9 % (36.0-48.0); HEMOGLOBIN. 8.6 g/dL (12.0-16.0); LYMPHOCYTES % 15.7 % (20.0-50.0); MEAN CORPUSCULAR HEMOGLOBIN 32.5 pg (28.0-32.0); MEAN CORPUSCULAR VOLUME 94.3 fL (81.0-99.0); MEAN PLATELET VOLUME 7.9 fl (7.4-10.4); MONOCYTES % 8.3 % (2.0-8.0); NEUTROPHILS % 72.9 % (40.0-76.0); PLATELET 156 x1000/uL (130-400); RED BLOOD CELL COUNT 2.64 mill/uL (4.2-5.4); RED CELL DISTRIBUTION WIDTH 18.6 % (11.6-14.6)
[2022-10-18 08:00] VITALS: BP_SYST 143; BP_SYST 155; BP_DIAS 53; BP_DIAS 64
[2022-10-18] MEDS: LIDOCAINE 5% PATCH TOP SCH (09:42)
[2022-10-18] MEDS: ENOXAPARIN 30MG/0.3ML SYR SUBCUT SCH (09:42)
[2022-10-18] MEDS: DILTIAZEM HCL 300MG CAPSULE SR 24HR PO SCH (09:47)
[2022-10-18 12:00] VITALS: BP 133/68
[2022-10-18 16:00] VITALS: BP 126/67
[2022-10-18 20:00] VITALS: BP 169/60
[2022-10-19] VITALS (14 sets, daily range): BP systolic 109–159; BP diastolic 43–62
[2022-10-19 06:26] LABS: BASOPHILS % 0.7 % (0.0-2.0); EOSINOPHILS % 3.6 % (0.0-5.0); HEMATOCRIT. 24.8 % (36.0-48.0); HEMOGLOBIN. 8.5 g/dL (12.0-16.0); LYMPHOCYTES % 22.2 % (20.0-50.0); MEAN CORPUSCULAR HEMOGLOBIN 32.4 pg (28.0-32.0); MEAN CORPUSCULAR VOLUME 95.3 fL (81.0-99.0); MEAN PLATELET VOLUME 7.8 fl (7.4-10.4); MONOCYTES % 12.1 % (2.0-8.0); NEUTROPHILS % 61.4 % (40.0-76.0); PLATELET 143 x1000/uL (130-400); RED BLOOD CELL COUNT 2.61 mill/uL (4.2-5.4); RED CELL DISTRIBUTION WIDTH 18.2 % (11.6-14.6)
[2022-10-19] MEDS: LEVOTHYROXINE SODIUM 88MCG TABLET PO SCH (06:33)
[2022-10-19] MEDS: ENOXAPARIN 30MG/0.3ML SYR SUBCUT SCH (13:17)
[2022-10-19] MEDS: LIDOCAINE 5% PATCH TOP SCH (13:18)
[2022-10-19] MEDS: DILTIAZEM HCL 300MG CAPSULE SR 24HR PO SCH (13:18)
[2022-10-20 05:57] LABS: BASOPHILS % 0.7 % (0.0-2.0); EOSINOPHILS % 3.7 % (0.0-5.0); HEMATOCRIT. 27.2 % (36.0-48.0); HEMOGLOBIN. 9.4 g/dL (12.0-16.0); MEAN CORPUSCULAR HEMOGLOBIN 33.3 pg (28.0-32.0); MEAN CORPUSCULAR VOLUME 96.6 fL (81.0-99.0); MEAN PLATELET VOLUME 7.8 fl (7.4-10.4); MONOCYTES % 12.5 % (2.0-8.0); NEUTROPHILS % 66.1 % (40.0-76.0); PLATELET 143 x1000/uL (130-400); RED BLOOD CELL COUNT 2.82 mill/uL (4.2-5.4); RED CELL DISTRIBUTION WIDTH 18.5 % (11.6-14.6)
[2022-10-20] MEDS: ACETAMINOPHEN 325MG TABLET PO PRN ×2 (07:00→22:44)
[2022-10-20] MEDS: LEVOTHYROXINE SODIUM 88MCG TABLET PO SCH (07:00)
[2022-10-20 08:00] VITALS: BP 135/47
[2022-10-20] MEDS: LIDOCAINE 5% PATCH TOP SCH (10:03)
[2022-10-20] MEDS: ENOXAPARIN 30MG/0.3ML SYR SUBCUT SCH (10:03)
[2022-10-20 16:00] VITALS: BP 126/57
[2022-10-20] MEDS: DILTIAZEM HCL 300MG CAPSULE SR 24HR PO SCH (16:27)
[2022-10-20 20:00] VITALS: BP 155/59
[2022-10-21] VITALS (14 sets, daily range): BP systolic 115–155; BP diastolic 51–67
[2022-10-21] MEDS: LEVOTHYROXINE SODIUM 88MCG TABLET PO SCH (06:22)
[2022-10-21] MEDS: ENOXAPARIN 30MG/0.3ML SYR SUBCUT SCH ×2 (09:00→14:06)
[2022-10-21 10:31] LABS: BASOPHILS % 0.7 % (0.0-2.0); HEMATOCRIT. 23.8 % (36.0-48.0); HEMOGLOBIN. 8.1 g/dL (12.0-16.0); LYMPHOCYTES % 22.8 % (20.0-50.0); MEAN CORPUSCULAR HEMOGLOBIN 32.3 pg (28.0-32.0); MEAN CORPUSCULAR VOLUME 94.6 fL (81.0-99.0); MEAN PLATELET VOLUME 7.7 fl (7.4-10.4); MONOCYTES % 9.3 % (2.0-8.0); NEUTROPHILS % 64.2 % (40.0-76.0); PLATELET 132 x1000/uL (130-400); RED BLOOD CELL COUNT 2.51 mill/uL (4.2-5.4); RED CELL DISTRIBUTION WIDTH 18.4 % (11.6-14.6)
[2022-10-21] MEDS: DILTIAZEM HCL 300MG CAPSULE SR 24HR PO SCH (14:06)
[2022-10-21] MEDS: LIDOCAINE 5% PATCH TOP SCH (14:06)
[2022-10-22] VITALS (7 sets, daily range): BP systolic 130–174; BP diastolic 50–76
[2022-10-22] MEDS: LEVOTHYROXINE SODIUM 88MCG TABLET PO SCH (06:25)
[2022-10-22] MEDS: DILTIAZEM HCL 300MG CAPSULE SR 24HR PO SCH ×2 (09:00→19:01)
[2022-10-22] MEDS: ENOXAPARIN 30MG/0.3ML SYR SUBCUT SCH ×2 (09:00→11:09)
[2022-10-22] MEDS: LIDOCAINE 5% PATCH TOP SCH (11:09)
[2022-10-22] MEDS: ACETAMINOPHEN 325MG TABLET PO PRN (20:36)
[2022-10-23 04:00] VITALS: BP 153/56
[2022-10-23] MEDS: LEVOTHYROXINE SODIUM 88MCG TABLET PO SCH (06:23)
[2022-10-23] MEDS: DILTIAZEM HCL 300MG CAPSULE SR 24HR PO SCH (10:11)
[2022-10-23] MEDS: ENOXAPARIN 30MG/0.3ML SYR SUBCUT SCH (10:11)
[2022-10-23] MEDS: LIDOCAINE 5% PATCH TOP SCH (10:12)
[2022-10-23] MEDS ORDERED: CLONIDINE 0.1MG TABLET PO PRN (10:30)
[2022-10-23 16:00] VITALS: BP 115/48
[2022-10-23 20:00] VITALS: BP 126/58
[2022-10-24] VITALS (14 sets, daily range): BP systolic 118–155; BP diastolic 48–62
[2022-10-24] MEDS: LEVOTHYROXINE SODIUM 88MCG TABLET PO SCH (06:02)
[2022-10-24] MEDS: ENOXAPARIN 30MG/0.3ML SYR SUBCUT SCH (09:00)
[2022-10-24] MEDS: LIDOCAINE 5% PATCH TOP SCH (09:00)
[2022-10-24] MEDS: DILTIAZEM HCL 300MG CAPSULE SR 24HR PO SCH (09:00)
[2022-10-24] MEDS: ACETAMINOPHEN 325MG TABLET PO PRN (19:49)
[2022-10-25] VITALS: BP 159/62
[2022-10-25 04:00] VITALS: BP 147/51
[2022-10-25] MEDS: LEVOTHYROXINE SODIUM 88MCG TABLET PO SCH (06:27)
[2022-10-25] MEDS: LIDOCAINE 5% PATCH TOP SCH (09:37)
[2022-10-25] MEDS: ENOXAPARIN 30MG/0.3ML SYR SUBCUT SCH (09:38)
[2022-10-25] MEDS: DILTIAZEM HCL 300MG CAPSULE SR 24HR PO SCH (09:39)
[2022-10-25 12:00] VITALS: BP 158/64
[2022-10-25 20:00] VITALS: BP 151/64
[2022-10-26] VITALS (12 sets, daily range): BP systolic 120–168; BP diastolic 46–79
[2022-10-26] MEDS: LEVOTHYROXINE SODIUM 88MCG TABLET PO SCH (06:14)
[2022-10-26] MEDS: ENOXAPARIN 30MG/0.3ML SYR SUBCUT SCH (09:42)
[2022-10-26] MEDS: LIDOCAINE 5% PATCH TOP SCH (09:43)
[2022-10-26] MEDS: DILTIAZEM HCL 300MG CAPSULE SR 24HR PO SCH (09:43)
[2022-10-26 12:31] LABS: BASOPHILS % 0.5 % (0.0-2.0); EOSINOPHILS % 1.2 % (0.0-5.0); HEMATOCRIT. 26.8 % (36.0-48.0); HEMOGLOBIN. 9.1 g/dL (12.0-16.0); LYMPHOCYTES % 13.6 % (20.0-50.0); MEAN CORPUSCULAR HEMOGLOBIN 32.3 pg (28.0-32.0); MEAN CORPUSCULAR VOLUME 94.8 fL (81.0-99.0); MEAN PLATELET VOLUME 7.6 fl (7.4-10.4); MONOCYTES % 4.2 % (2.0-8.0); NEUTROPHILS % 80.5 % (40.0-76.0); PLATELET 130 x1000/uL (130-400); RED BLOOD CELL COUNT 2.83 mill/uL (4.2-5.4); RED CELL DISTRIBUTION WIDTH 18.6 % (11.6-14.6)
[2022-10-27 04:00] VITALS: BP 153/50
[2022-10-27] MEDS: LEVOTHYROXINE SODIUM 88MCG TABLET PO SCH (05:45)
[2022-10-27 06:59] LABS: BASOPHILS % 0.7 % (0.0-2.0); EOSINOPHILS % 2.2 % (0.0-5.0); HEMATOCRIT. 25.6 % (36.0-48.0); HEMOGLOBIN. 8.8 g/dL (12.0-16.0); MEAN CORPUSCULAR HEMOGLOBIN 32.4 pg (28.0-32.0); MEAN CORPUSCULAR VOLUME 94.3 fL (81.0-99.0); MEAN PLATELET VOLUME 7.7 fl (7.4-10.4); MONOCYTES % 6.4 % (2.0-8.0); NEUTROPHILS % 74.7 % (40.0-76.0); PLATELET 111 x1000/uL (130-400); RED BLOOD CELL COUNT 2.71 mill/uL (4.2-5.4); RED CELL DISTRIBUTION WIDTH 18.5 % (11.6-14.6)
[2022-10-27 08:00] VITALS: BP 160/57
[2022-10-27] MEDS: ENOXAPARIN 30MG/0.3ML SYR SUBCUT SCH (09:00)
[2022-10-27] MEDS: DILTIAZEM HCL 300MG CAPSULE SR 24HR PO SCH (09:44)
[2022-10-27] MEDS: LIDOCAINE 5% PATCH TOP SCH (09:48)
[2022-10-27 12:00] VITALS: BP 112/69
[2022-10-27 16:00] VITALS: BP 116/59
[2022-10-27 20:00] VITALS: BP 141/56
[2022-10-28] VITALS (14 sets, daily range): BP systolic 130–175; BP diastolic 54–74
[2022-10-28] MEDS: LEVOTHYROXINE SODIUM 88MCG TABLET PO SCH (06:39)
[2022-10-28] MEDS: ENOXAPARIN 30MG/0.3ML SYR SUBCUT SCH (09:00)
[2022-10-28] MEDS: LIDOCAINE 5% PATCH TOP SCH (09:00)
[2022-10-28 09:34] LABS: BASOPHILS % 0.7 % (0.0-2.0); HEMATOCRIT. 27.1 % (36.0-48.0); HEMOGLOBIN. 9.1 g/dL (12.0-16.0); LYMPHOCYTES % 19.8 % (20.0-50.0); MEAN CORPUSCULAR VOLUME 95.6 fL (81.0-99.0); MEAN PLATELET VOLUME 8.2 fl (7.4-10.4); MONOCYTES % 6.4 % (2.0-8.0); NEUTROPHILS % 70.1 % (40.0-76.0); PLATELET 127 x1000/uL (130-400); RED BLOOD CELL COUNT 2.84 mill/uL (4.2-5.4); RED CELL DISTRIBUTION WIDTH 18.7 % (11.6-14.6)
[2022-10-28] MEDS: DILTIAZEM HCL 300MG CAPSULE SR 24HR PO SCH (12:44)
== END 2022-10-28 18:31 | disposition home health service (06) | DRG 194 ==
LOC: ER 21:39 → 7EST 09-16 05:07 → SUPCPDRO 09-16 06:30 → ENRESERV 09-16 18:30 → 5WST 09-22 17:44 → UNDODISIN 10-21 17:30
PROVIDERS: ADMIT Internal Medicine; ATTEND Internal Medicine
PROC: 5A1D70Z Performance of Urinary Filtration, Intermittent, Less than 6 Hours Per Day (ICD-10-PCS; principal; 2022-09-18)
PROC: 5A1D70Z Performance of Urinary Filtration, Intermittent, Less than 6 Hours Per Day (ICD-10-PCS; 2022-09-19)
PROC: 5A1D70Z Performance of Urinary Filtration, Intermittent, Less than 6 Hours Per Day (ICD-10-PCS; 2022-09-20)
PROC: 5A1D70Z Performance of Urinary Filtration, Intermittent, Less than 6 Hours Per Day (ICD-10-PCS; 2022-09-22)
PROC: 5A1D70Z Performance of Urinary Filtration, Intermittent, Less than 6 Hours Per Day (ICD-10-PCS; 2022-09-24)
PROC: 5A1D70Z Performance of Urinary Filtration, Intermittent, Less than 6 Hours Per Day (ICD-10-PCS; 2022-09-26)
PROC: 5A1D70Z Performance of Urinary Filtration, Intermittent, Less than 6 Hours Per Day (ICD-10-PCS; 2022-09-28)
PROC: 5A1D70Z Performance of Urinary Filtration, Intermittent, Less than 6 Hours Per Day (ICD-10-PCS; 2022-09-30)
PROC: 5A1D70Z Performance of Urinary Filtration, Intermittent, Less than 6 Hours Per Day (ICD-10-PCS; 2022-10-01)
PROC: 5A1D70Z Performance of Urinary Filtration, Intermittent, Less than 6 Hours Per Day (ICD-10-PCS; 2022-10-03)
PROC: 5A1D70Z Performance of Urinary Filtration, Intermittent, Less than 6 Hours Per Day (ICD-10-PCS; 2022-10-05)
PROC: 5A1D70Z Performance of Urinary Filtration, Intermittent, Less than 6 Hours Per Day (ICD-10-PCS; 2022-10-07)
PROC: 5A1D70Z Performance of Urinary Filtration, Intermittent, Less than 6 Hours Per Day (ICD-10-PCS; 2022-10-10)
PROC: 5A1D70Z Performance of Urinary Filtration, Intermittent, Less than 6 Hours Per Day (ICD-10-PCS; 2022-10-12)
PROC: 5A1D70Z Performance of Urinary Filtration, Intermittent, Less than 6 Hours Per Day (ICD-10-PCS; 2022-10-14)
PROC: 30233N1 Transfusion of Nonautologous Red Blood Cells into Peripheral Vein, Percutaneous Approach (ICD-10-PCS; 2022-10-14)
PROC: 5A1D70Z Performance of Urinary Filtration, Intermittent, Less than 6 Hours Per Day (ICD-10-PCS; 2022-10-17)
PROC: 5A1D70Z Performance of Urinary Filtration, Intermittent, Less than 6 Hours Per Day (ICD-10-PCS; 2022-10-19)
PROC: 5A1D70Z Performance of Urinary Filtration, Intermittent, Less than 6 Hours Per Day (ICD-10-PCS; 2022-10-21)
PROC: 5A1D70Z Performance of Urinary Filtration, Intermittent, Less than 6 Hours Per Day (ICD-10-PCS; 2022-10-24)
PROC: 5A1D70Z Performance of Urinary Filtration, Intermittent, Less than 6 Hours Per Day (ICD-10-PCS; 2022-10-26)
PROC: 5A1D70Z Performance of Urinary Filtration, Intermittent, Less than 6 Hours Per Day (ICD-10-PCS; 2022-10-28)
DX: I13.2 Hypertensive heart and chronic kidney disease with heart failure and with stage 5 chronic kidney disease, or end stage renal disease (principal); I21.4 Non-ST elevation (NSTEMI) myocardial infarction; M62.82 Rhabdomyolysis; E44.1 Mild protein-calorie malnutrition; E87.1 Hypo-osmolality and hyponatremia; D63.1 Anemia in chronic kidney disease; N18.6 End stage renal disease; I50.33 Acute on chronic diastolic (congestive) heart failure; E03.9 Hypothyroidism, unspecified; E11.22 Type 2 diabetes mellitus with diabetic chronic kidney disease; B02.9 Zoster without complications; G83.9 Paralytic syndrome, unspecified; E78.5 Hyperlipidemia, unspecified; Z20.822 Contact with and (suspected) exposure to COVID-19; E55.9 Vitamin D deficiency, unspecified; D72.819 Decreased white blood cell count, unspecified; M17.10 Unilateral primary osteoarthritis, unspecified knee; M75.101 Unspecified rotator cuff tear or rupture of right shoulder, not specified as traumatic; Z68.29 Body mass index [BMI] 29.0-29.9, adult; R29.6 Repeated falls; Z90.49 Acquired absence of other specified parts of digestive tract; Z99.2 Dependence on renal dialysis; Z91.15 Patient's noncompliance with renal dialysis; Z79.899 Other long term (current) drug therapy; Z79.4 Long term (current) use of insulin; Z88.5 Allergy status to narcotic agent
CPT/HCPCS: 36415; 71045; 73560; 80048; 80053; 80061; 82306; 82550; 82553; 82607; 82746; 83036; 83540; 83550; 83735; 83880; 84100; 84439; 84443; 84484; 85025; 85027; 86705; 86706; 86709; 86803; 86850; 86900; 86920; 87340; 87426; 90935; 92610; 93005; 93306; 93970; 97110; 97116; 97162; 97164; 97166; 97168; 97530; 97535; 99285; J0885; J1442; J1650; P9016

== ENCOUNTER → 2023-03-14 | Day surgery (SDC) | payer MEDICARE, MEDICAID ==
[~2023-03-14] MED LIST changes: +AMI2 PO; +LIDOCAINE HCL 1% 10 MG/ML 10ML VIAL ONE; +SODIUM BICARBONATE 4% (2.4MEQ) 5ML VIAL IV ONE
== END | disposition home or self-care (01) ==
LOC: RAD 09:07
PROVIDERS: ATTEND Internal Medicine Gastroenterology
DX: R19.09 Other intra-abdominal and pelvic swelling, mass and lump (principal); I10 Essential (primary) hypertension; E78.5 Hyperlipidemia, unspecified; E03.9 Hypothyroidism, unspecified; Z79.899 Other long term (current) drug therapy; Z98.890 Other specified postprocedural states; Z88.5 Allergy status to narcotic agent
CPT/HCPCS: 49180; 88304; 76942; J3490 ×2

== ENCOUNTER 2025-07-08 09:37 | Inpatient (IN) | payer MEDICARE, MEDICAID ==
[~2025-07-08] VITALS: Ht 167.6 cm; Wt 74.4 kg
[~2025-07-08 09:37] MED LIST changes: -LIDOCAINE HCL 1% 10 MG/ML 10ML VIAL ONE; -SODIUM BICARBONATE 4% (2.4MEQ) 5ML VIAL IV ONE
[2025-07-08 09:39] VITALS: O2SAT 100
[2025-07-08 10:16] LABS: BASOPHILS % 0.5 % (0.0-2.0); EOSINOPHILS % 1.6 % (0.0-5.0); LYMPHOCYTES % 13.7 % (20.0-50.0); MEAN PLATELET VOLUME 8.6 fl (7.4-10.4); MONOCYTES % 10.4 % (2.0-8.0); NEUTROPHILS % 73.8 % (40.0-76.0); PLATELET 151 x1000/uL (130-400); RED BLOOD CELL COUNT 2.29 mill/uL (4.2-5.4); RED CELL DISTRIBUTION WIDTH 19.6 % (11.6-14.6)
[2025-07-08 10:29] LABS: UREA NITROGEN BLOOD 30.0 mg/dL (9-23)
[2025-07-08 10:33] LABS: HEMOGLOBIN. 6.7 g/dL (12.0-16.0)
[2025-07-08 10:34] LABS: HEMATOCRIT. 21.2 % (36.0-48.0)
[2025-07-08 10:56] LABS: CREATININE 5.5 mg/dL (0.6-1.0)
[2025-07-08] MEDS ORDERED: MAGNESIUM/ALUMINUM HYDROXIDE/SIMETHICONE 30ML UDC PO PRN (13:15)
[2025-07-08] MEDS ORDERED: GUAIFENESIN 200MG/10ML SUGAR FREE UDC PO PRN (13:15)
[2025-07-08] MEDS ORDERED: ONDANSETRON HCL 4MG/2ML INJ IV PRN (13:15)
[2025-07-08 15:38] LABS: HEPATITIS A AB IGM NEGATIVE (Negative); HEPATITIS B CORE AB IGM NEGATIVE (Negative)
[2025-07-08 15:39] LABS: HEPATITIS C AB NON REACTIVE (Neg) (Negative)
[2025-07-08] MEDS: LEVOTHYROXINE SODIUM 88MCG TABLET PO SCH (15:56)
[2025-07-08 17:30] VITALS: BP_SYST 177; BP_DIAS 78; BP_DIAS 79; PULSE 78; PULSE 79; RESP 18; TEMP 36.2; TEMP 36.2512; O2SAT 98
[2025-07-08] MEDS: AMIODARONE 200MG TABLET PO SCH (18:24)
[2025-07-08] MEDS: PANTOPRAZOLE 40MG DR TABLET PO SCH (18:26)
[2025-07-08] MEDS: DILTIAZEM HCL 300MG CAPSULE SR 24HR PO SCH (18:58)
[2025-07-08 20:00] VITALS: BP 177/74; PULSE 89; RESP 18; TEMP 36.1; O2SAT 100
[2025-07-08] MEDS: CLONIDINE 0.1MG TABLET PO PRN (21:04)
[2025-07-08] MEDS: ATORVASTATIN CALCIUM 20MG TABLET PO SCH (21:04)
[2025-07-08] MEDS: EPOETIN ALFA-EPBX 4,000 UNITS/ML VIAL SUBCUT SCH (21:05)
[2025-07-09] VITALS (9 sets, daily range): BP systolic 118–159; BP diastolic 64–85; PULSE 69–83; RESP 16–18; TEMP 35.9–36.6; O2SAT 99–100
[2025-07-09] MEDS ORDERED: PANTOPRAZOLE 40MG DR TABLET PO SCH (07:10)
[2025-07-09] MEDS: DOCUSATE SODIUM 100MG CAPSULE PO PRN (09:32)
[2025-07-09 12:25] LABS: BASOPHILS % 0.8 % (0.0-2.0); EOSINOPHILS % 2.2 % (0.0-5.0); HEMATOCRIT. 25.0 % (36.0-48.0); HEMOGLOBIN. 8.1 g/dL (12.0-16.0); LYMPHOCYTES % 15.2 % (20.0-50.0); MEAN PLATELET VOLUME 8.6 fl (7.4-10.4); MONOCYTES % 7.4 % (2.0-8.0); NEUTROPHILS % 74.4 % (40.0-76.0); PLATELET 141 x1000/uL (130-400); RED BLOOD CELL COUNT 2.74 mill/uL (4.2-5.4); RED CELL DISTRIBUTION WIDTH 18.7 % (11.6-14.6)
[2025-07-09 12:39] LABS: CREATININE 4.5 mg/dL (0.6-1.0); UREA NITROGEN BLOOD 26.0 mg/dL (9-23)
[2025-07-09 13:34] LABS: FOLIC ACID (FOLATE) SERUM > 20.00 ng/mL (>5.38); VITAMIN B12 SERUM 391 pg/mL (211-911)
[2025-07-09] MEDS: FERROUS SULFATE 325MG TABLET PO SCH (15:00)
[2025-07-09] MEDS: ASCORBIC ACID 500 MG TABLET PO SCH (15:31)
[2025-07-09] MEDS: IRON SUCROSE COMPLEX 100 MG/5 ML ML IV SCH (16:00)
[2025-07-09] MEDS: POTASSIUM CHLORIDE 20MEQ TABLET SR PO NR (16:15)
[2025-07-09] MEDS: RISPERIDONE 1MG TABLET PO SCH (18:53)
[2025-07-10] VITALS: BP 144/65; PULSE 83; RESP 18; TEMP 36.3; O2SAT 99
[2025-07-10 04:00] VITALS: BP 165/84; PULSE 85; RESP 18; TEMP 36.3; O2SAT 100
[2025-07-10 08:00] VITALS: BP 123/60; PULSE 84; RESP 18; TEMP 36.6; O2SAT 98
[2025-07-10] MEDS: AMIODARONE 200MG TABLET PO SCH (11:24)
[2025-07-10 12:00] VITALS: BP 139/61; PULSE 75; RESP 18; TEMP 36.2; TEMP 36.5; O2SAT 97; O2SAT 98
[2025-07-10 12:43] LABS: PLATELET 133 x1000/uL (130-400); RED BLOOD CELL COUNT 2.62 mill/uL (4.2-5.4); RED CELL DISTRIBUTION WIDTH 19.2 % (11.6-14.6)
[2025-07-10 12:57] LABS: UREA NITROGEN BLOOD 36.0 mg/dL (9-23)
[2025-07-10 12:59] LABS: PHOSPHORUS 4.0 mg/dL (2.5-4.9)
[2025-07-10 13:00] LABS: ASPARTATE AMINOTRANSFERASE 12 IU/L (<34); BILIRUBIN DIRECT < 0.1 mg/dL (<=3.0); BILIRUBIN TOTAL 0.2 mg/dL (0.1-1.0); PROTEIN TOTAL 6.1 g/dL (6.0-8.3)
[2025-07-10 13:03] LABS: CREATININE 6.5 mg/dL (0.6-1.0)
[2025-07-10 16:00] VITALS: BP 129/63; PULSE 82; RESP 20; TEMP 36.6; O2SAT 97
[2025-07-10 20:00] VITALS: BP 145/63; PULSE 71; RESP 20; TEMP 35.9; O2SAT 98
[2025-07-11] VITALS (7 sets, daily range): BP systolic 135–194; BP diastolic 62–93; PULSE 81–95; RESP 18–20; TEMP 35.8–37.1; O2SAT 98–99
[2025-07-11 09:51] LABS: BASOPHILS % 0.5 % (0.0-2.0); EOSINOPHILS % 2.2 % (0.0-5.0); HEMATOCRIT. 29.0 % (36.0-48.0); HEMOGLOBIN. 8.9 g/dL (12.0-16.0); LYMPHOCYTES % 16.3 % (20.0-50.0); MEAN PLATELET VOLUME 8.3 fl (7.4-10.4); MONOCYTES % 8.0 % (2.0-8.0); NEUTROPHILS % 73.0 % (40.0-76.0); PLATELET 149 x1000/uL (130-400); RED BLOOD CELL COUNT 3.10 mill/uL (4.2-5.4); RED CELL DISTRIBUTION WIDTH 19.7 % (11.6-14.6)
[2025-07-11 10:02] LABS: UREA NITROGEN BLOOD 36 mg/dL (9-23)
[2025-07-11 10:03] LABS: LACTATE DEHYDROGENASE 152 IU/L (120-246)
[2025-07-11 10:04] LABS: PHOSPHORUS 4.5 mg/dL (2.5-4.9)
[2025-07-11 10:16] LABS: INR 1.0
[2025-07-11 10:31] LABS: CREATININE 7.9 mg/dL (0.6-1.0)
[2025-07-11] MEDS ORDERED: PROPOFOL 200MG/20ML VIAL IV ONE (13:11)
[2025-07-11] MEDS ORDERED: LIDOCAINE HCL 1% 20ML VIAL ONE (13:12)
[2025-07-11] MEDS ORDERED: FAMOTIDINE 20MG/2ML VIAL IV PRN (13:45)
[2025-07-11] MEDS ORDERED: MEPERIDINE HCL/PF 25MG/ML CPJ IV PRN (13:45)
[2025-07-11] MEDS ORDERED: LABETALOL 5MG/ML 4ML INJ IV PRN (13:45)
[2025-07-11] MEDS ORDERED: HYDRALAZINE 20MG/ML VIAL IV PRN ×2 (13:45)
[2025-07-11] MEDS ORDERED: ACETAMINOPHEN 1,000MG/100ML PREMIX IV PRN (13:45)
[2025-07-11] MEDS ORDERED: ONDANSETRON HCL 4MG/2ML INJ IV PRN (13:45)
[2025-07-11] MEDS ORDERED: HYDROMORPHONE HCL/PF 1MG/ML INJ IV PRN (13:45)
[2025-07-12] VITALS (8 sets, daily range): BP systolic 125–188; BP diastolic 68–93; PULSE 64–95; RESP 13–20; TEMP 35.9–36.55848; O2SAT 98
[2025-07-12 07:51] LABS: BASOPHILS % 0.4 % (0.0-2.0); EOSINOPHILS % 1.8 % (0.0-5.0); HEMATOCRIT. 27.8 % (36.0-48.0); HEMOGLOBIN. 8.8 g/dL (12.0-16.0); LYMPHOCYTES % 14.9 % (20.0-50.0); MEAN PLATELET VOLUME 8.5 fl (7.4-10.4); MONOCYTES % 10.0 % (2.0-8.0); NEUTROPHILS % 72.9 % (40.0-76.0); PLATELET 143 x1000/uL (130-400); RED BLOOD CELL COUNT 3.02 mill/uL (4.2-5.4); RED CELL DISTRIBUTION WIDTH 19.8 % (11.6-14.6)
[2025-07-12 08:01] LABS: UREA NITROGEN BLOOD 23.0 mg/dL (9-23)
[2025-07-12 08:34] LABS: CREATININE 6.1 mg/dL (0.6-1.0)
[2025-07-12] MEDS ORDERED: FE300LUD MT (13:17)
[2025-07-12] MEDS ORDERED: AMI2 PO (13:17)
[2025-07-12] MEDS ORDERED: DILT300C53 PO (13:17)
[2025-07-12] MEDS ORDERED: FERR220S9 MT (14:49)
== END 2025-07-12 19:18 | disposition home or self-care (01) | DRG 811 ==
LOC: ER 10:05 → 8WST 11:25 → EDBEDREQTM 11:30 → EDBEDREQ 11:30 → ENRESERV 16:36
PROVIDERS: ADMIT Student in an Organized Health Care Education/Training Program; ATTEND Student in an Organized Health Care Education/Training Program
PROC: 30233N1 Transfusion of Nonautologous Red Blood Cells into Peripheral Vein, Percutaneous Approach (ICD-10-PCS; 2025-07-08)
PROC: 5A1D70Z Performance of Urinary Filtration, Intermittent, Less than 6 Hours Per Day (ICD-10-PCS; 2025-07-09)
PROC: 0DB78ZZ Excision of Stomach, Pylorus, Via Natural or Artificial Opening Endoscopic (ICD-10-PCS; principal; 2025-07-11)
PROC: 0DB78ZX Excision of Stomach, Pylorus, Via Natural or Artificial Opening Endoscopic, Diagnostic (ICD-10-PCS; 2025-07-11)
PROC: 5A1D70Z Performance of Urinary Filtration, Intermittent, Less than 6 Hours Per Day (ICD-10-PCS; 2025-07-11)
DX: D50.9 Iron deficiency anemia, unspecified (principal); N18.6 End stage renal disease; I13.2 Hypertensive heart and chronic kidney disease with heart failure and with stage 5 chronic kidney disease, or end stage renal disease; C85.90 Non-Hodgkin lymphoma, unspecified, unspecified site; E87.1 Hypo-osmolality and hyponatremia; I42.9 Cardiomyopathy, unspecified; K22.2 Esophageal obstruction; D72.819 Decreased white blood cell count, unspecified; Z99.2 Dependence on renal dialysis; E11.22 Type 2 diabetes mellitus with diabetic chronic kidney disease; E03.9 Hypothyroidism, unspecified; J44.9 Chronic obstructive pulmonary disease, unspecified; F31.9 Bipolar disorder, unspecified; E66.01 Morbid (severe) obesity due to excess calories; D63.1 Anemia in chronic kidney disease; I50.32 Chronic diastolic (congestive) heart failure; I48.92 Unspecified atrial flutter; K31.7 Polyp of stomach and duodenum; K44.9 Diaphragmatic hernia without obstruction or gangrene; K57.30 Diverticulosis of large intestine without perforation or abscess without bleeding; M17.0 Bilateral primary osteoarthritis of knee; E78.5 Hyperlipidemia, unspecified; I25.10 Atherosclerotic heart disease of native coronary artery without angina pectoris; K59.00 Constipation, unspecified; E87.6 Hypokalemia; I48.91 Unspecified atrial fibrillation; Z88.5 Allergy status to narcotic agent; Z90.49 Acquired absence of other specified parts of digestive tract; Z79.01 Long term (current) use of anticoagulants; Z91.199 Patient's noncompliance with other medical treatment and regimen due to unspecified reason; Z68.26 Body mass index [BMI] 26.0-26.9, adult; Z79.899 Other long term (current) drug therapy; K29.70 Gastritis, unspecified, without bleeding
CPT/HCPCS: 36415; 71045; 76705; 80048; 80076; 82270; 82607; 82728; 82746; 83540; 83550; 83615; 83735; 84100; 85014; 85018; 85025; 85027; 85044; 86705; 86709; 86850; 86880; 86900; 86920; 87340; 88305; 90935; 93005; 93306; 93970; 97162; 97166; 97535; 99291; J0885; J2003; J2704; P9016